=== PATIENT | female | born 1985 | race American Indian/Alaskan Native ===

== ENCOUNTER 2016-11-20 05:42 | Inpatient (IN) | payer MEDICARE ==
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
[~2016-11-20 05:42] MED LIST: LACTATED RINGERS 1,000 ML IV SCH
[2016-11-20] MEDS ORDERED: BICITRA PO ONE (06:00)
[2016-11-20] MEDS ORDERED: PITOCin/NS 20 UNIT/1000ML DRIP 20 UNITS/1,000 ML BAG IV SCH ×2 (06:00→12:29)
[2016-11-20] MEDS ORDERED: ANCEF/STERILE WATER 2 GM/20 ML 2 GM/20 ML SYRINGE IV NR (06:00)
[2016-11-20] MEDS ORDERED: REGLAN IV ONE (06:00)
[2016-11-20] MEDS ORDERED: PEPCID IV ONE (06:00)
[2016-11-20] MEDS ORDERED: LACTATED RINGERS 1,000 ML ONE ×3 (06:01→07:56)
[2016-11-20 06:25] LABS: Basophils % (Auto) 0.8 % (0.0-1.8); Eosinophils % (Auto) 1.2 % (0.0-4.3); Hematocrit 33.3 % (30.3-42.9); Hemoglobin 11.3 gm/dl (10.1-14.3); Mean Corpuscular HGB Conc 34 % (30-34); Mean Corpuscular Hemoglobin 28 pg (28-32); Mean Corpuscular Volume 82 fl (79-97); Platelet Count 299 K/mm3 (140-440); Red Blood Count 4.05 M/mm3 (3.65-5.03); Red Cell Distribution Width 13.5 % (13.2-15.2); White Blood Count 7.7 K/mm3 (4.5-11.0)
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
--- NOTE | 2016-11-20 07:25 | Anesthesia Day of Surgery ---
Anesthesia Day of Surgery - Day of Surgery Patient Examined: Yes Patient H&P Reviewed: Yes Patient is NPO: Yes
[2016-11-20] MEDS ORDERED: DILAUDID IV PRN (08:00)
[2016-11-20] MEDS ORDERED: SODIUM CHLORIDE FLUSH SYRINGE 10 ML IV PRN (08:00)
[2016-11-20] MEDS ORDERED: NARCAN 0.4 MG/1 ML IV PRN ×2 (08:00→12:29)
[2016-11-20] MEDS ORDERED: BENADRYL IV PRN (08:00)
[2016-11-20] MEDS ORDERED: ZOFRAN IV PRN (08:00)
[2016-11-20] MEDS ORDERED: MORPHINE ONE (09:16)
[2016-11-20] MEDS ORDERED: WATER FOR IRRIG STERILE IR ONE (09:55)
[2016-11-20] MEDS ORDERED: NACL 0.9% IR ONE (09:55)
[2016-11-20] MEDS ORDERED: NEO SYNEPHRINE/NS Syringe(OR USE) IV ONE (11:00)
[2016-11-20] MEDS ORDERED: ZOFRAN ONE (11:02)
[2016-11-20] MEDS ORDERED: TORADOL ONE (11:11)
[2016-11-20] MEDS ORDERED: XYLOCAINE MPF 2% ONE ×3 (11:18)
--- NOTE | 2016-11-20 11:35 | Operative Report ---
Operative Report Operative Report: Date of procedure: November 20, 2016 Preoperative diagnosis: 1) IUP at 39w2d 2) Previous x 2 3) Obesity 4) Undesired Fertility Postoperative diagnosis: Same 5) Intraabdominal adhesions Procedure: 1) Repeat low transverse section 2) Bilateral tubal ligation via [place] Method 3) Lysis of Adhesions Surgeon: Coco Blevins M.D. Anesthesia: Spinal-Epidural Findings: 1) Viable male , Apgars 9 and 9, weight 3310g, (7lb 5 oz). Tight nuchal cord x 2 2) Normal-appearing uterus ovaries and tubes 3) Dense adhesions of the parietal peritoneum to the anterior surface of the uterus Estimated blood loss: 800mL IV fluids: 1700 mL Urine output: 150 mL, concentrated at the end of the procedure Drains: Chiu to gravity Specimens: Bilateral tubal segments to pathology Complications: None. Counts correct x 3 Disposition: Stable to PACU Indication for procedure: Pt is a 31 year old female with a h/o two previous sections and undesired fertility who presents for repeat section and bilateral tubal ligation. Operation in detail: After the risks, benefits, alternatives and complications were explained to the patient she gave informed consent for the procedure. She was subsequently taken to the operating room where spinal-epidural anesthesia was noted to be adequate. She was subsequently placed in the dorsal supine position with leftward tilt and prepped and draped in a normal sterile fashion. heart tones were noted to be in the 135s prior to incision. A timeout was performed. A Pfannenstiel skin incision was made with the knife and carried down to the layer of the fascia with the Bovie. The fascia was incised in the midline and the fascial incision was extended bilaterally with the Bovie. Attention was then turned to the superior aspect of the incision which was grasped with two Kochers, tented up, and dissected off the rectus muscles. Attention was then turned to the inferior aspect of the incision which was grasped with two Kochers , tented up and dissected off the rectus muscles. The rectus muscles were then in the midline and partially transected for adequate visualization. The peritoneum was then entered bluntly. The peritoneal incision was extended with good visualization of the bladder. Fifteen minutes were then spent lysing dense adhesions of the parietal peritoneum to the anterior surface of the uterus. The peritoneal incision was then stretched. An Butch self- retaining retractor was placed for visualization. The bladder blade was placed. The vesicouterine peritoneum was grasped with smooth pickups and incised with Metzenbaum scissors. Metzenbaum scissors were used to extend the incision bilaterally. The bladder flap was then created digitally and the bladder blade was replaced. A transverse incision was made in the lower uterine segment with a knife and extended bilaterally with the bandage scissors. The head was delivered without difficulty, nuchal cord x 2 was reduced, followed by shoulders and body. was bulb suctioned at delivery. The cord was clamped and cut and the was handed to NICU staff in attendance. Cord blood was collected. The placenta was then delivered manually. The uterus was then exteriorized and cleared of all clots and debris. The hysterotomy was then reapproximated with 0 Vicryl in a running locked fashion. A second layer of the same suture was used in imbricating fashion. Attention was then turned to the tubal ligation. The right tube was identified and followed to to the fimbriae. The tube was then grasped with a Clark and ligated via the [place] method using 0 chromic suture. Attention was then turned to the left tube which in a similar fashion was followed down to the fimbriae, grasped with a Clark, and ligated in via the [place] method using 0 chromic suture. Hemostasis was noted. Surgicel was placed over the right tube. The hysterotomy was inspected and hemostasis was noted. The uterus was then returned to the peritoneal cavity. All instruments were removed from the abdominal cavity. The hysterotomy was again inspected and noted to be hemostatic. Surgicel was then placed over the hysterotomy. The rectus muscles and peritoneum were then reapproximated with 2-0 Vicryl in a running fashion. The cut edges of the rectus muscles were reapproximated with 2- 0 Vicryl in an interrupted fashion, then covered with Surgicel. The fascia was reapproximated with 0 Vicryl in a running fashion. The skin was closed with 4-0 Vicryl in a running fashion. The incision was then covered with steri strips and a pressure dressing. The procedure was then ended. The patient tolerated the procedure well and was taken to the PACU in stable condition. All instrument, lap, and needle counts were correct 3.
--- NOTE | 2016-11-20 11:35 | Procedure Note ---
OB Delivery Note - Delivery Date of Delivery: 11/20/16 Surgeon: FRANCK HOGUE Estimated blood loss: other (800 mL) - Section Preop diagnosis: repeat , desires sterilization Postop diagnosis: same section procedure: section, repeat low transverse, bilateral tubal ligation, other (lysis of adhesions ) Disposition: PACU Complications: none Narrative: Please see operative note. - A at 1 minute: 9 at 5 minutes: 9 Infant Gender: Male (3310 (7lb 5 oz) @ 1023 am)
[2016-11-20] MEDS ORDERED: LANSINOH TP PRN (12:29)
[2016-11-20] MEDS ORDERED: SODIUM CHLORIDE FLUSH SYRINGE 10 ML IV NR (12:29)
[2016-11-20] MEDS ORDERED: TUCKS PAD TP PRN (12:29)
[2016-11-20] MEDS ORDERED: ANCEF/NS 1 GM/50 ML 1 GM/50 ML BAG IV SCH (12:29)
[2016-11-20] MEDS ORDERED: TORADOL IV PRN (12:29)
[2016-11-20] MEDS ORDERED: MORPHINE IV PRN ×2 (12:29)
[2016-11-20] MEDS ORDERED: D5LR 1,000 ML IV SCH (12:29)
[2016-11-20] MEDS: FEOSOL PO SCH (21:50)
[2016-11-20] MEDS ORDERED: MILK OF MAGNESIA ONE (22:12)
[2016-11-20] MEDS: PERCOCET 5/325 PO PRN (23:43)
[2016-11-21 00:41] LABS: Hematocrit 30.8 % (30.3-42.9); Hemoglobin 9.9 gm/dl (10.1-14.3)
[2016-11-21] MEDS ORDERED: ANCEF/NS 1 GM/50 ML 1 GM/50 ML BAG IV ONE (02:36)
[2016-11-21] MEDS: MILK OF MAGNESIA PO SCH ×2 (02:39→21:18)
--- NOTE | 2016-11-21 09:28 | Progress Note ---
Subjective Date of service: 11/21/16 Interval history: 1st POD after Patient is in the bed, comfortable. Pain is well controlled with pain meds. Some pruritus is controlled with benadryl. Ambulated well. No residual neurological deficit. No anesthesia complications Objective - Constitutional Vitals: Vital Signs - 12hr 11/21/16 08:24 Temperature 98.6 F Respiratory 18 Rate Blood Pressure 105/56 - Labs CBC & Chem 7: 11/20/16 23:38 Labs: Abnormal lab results 11/20/16 Range/Units 23:38 Hgb 9.9 L (10.1-14.3) gm/dl
--- NOTE | 2016-11-21 10:12 | Progress Note ---
Assessment and Plan - Patient Problems (1) Previous delivery, delivered Current Visit: Yes Status: Acute Plan to address problem: routine postoperative care Subjective - Subjective Date of service: 11/21/16 Interval history: Tolerating clear diet. Routine postop discomforts. Overall pain is being controlled. Patient reports: appetite normal, pain well controlled : doing well Objective - Vital Signs Latest vital signs: Vital Signs Temp Pulse Resp BP BP Pulse Ox 11/21/16 08:24 98.6 F 91 H 18 105/56 11/20/16 13:00 97.7 F 60 20 130/80 11/20/16 12:37 98.1 F 11/20/16 12:31 65 11 L 135/30 100 11/20/16 12:15 67 11 L 104/43 100 11/20/16 12:10 69 17 111/52 99 11/20/16 12:05 65 15 121/61 99 11/20/16 12:01 73 15 116/72 100 11/20/16 11:55 60 9 L 116/72 100 11/20/16 11:50 63 12 124/80 100 11/20/16 11:45 67 15 126/43 100 11/20/16 11:40 54 L 9 L 119/66 100 11/20/16 11:35 58 L 7 L 124/60 100 11/20/16 11:30 97.9 F 94 Intake and Output 11/20/16 11/21/16 11/21/16 22:59 06:59 14:59 Other: # Voids Void 1 - Exam Uterus: Present: normal, firm Incision: Present: dressed - Labs Labs: Abnormal lab results 11/20/16 Range/Units 23:38 Hgb 9.9 L (10.1-14.3) gm/dl
[2016-11-21] MEDS: FEOSOL PO SCH ×2 (10:31→21:20)
[2016-11-21] MEDS: PERCOCET 5/325 PO PRN ×3 (10:31→21:19)
[2016-11-21] MEDS ORDERED: M-M-R II VACCINE SUB-Q ONE (11:48)
[2016-11-21] MEDS ORDERED: BOOSTRIX IM ONE (11:48)
[2016-11-21] MEDS: MOTRIN PO PRN ×2 (12:01→19:20)
[2016-11-21] MEDS: PRENATAL VITAMIN PO SCH (12:02)
[2016-11-22] MEDS: MYLICON PO PRN ×2 (01:52→08:01)
[2016-11-22] MEDS: PERCOCET 5/325 PO PRN ×4 (04:23→23:55)
[2016-11-22] MEDS: MOTRIN PO PRN ×2 (08:00→17:02)
[2016-11-22] MEDS: PRENATAL VITAMIN PO SCH (08:01)
[2016-11-22] MEDS: MILK OF MAGNESIA PO SCH ×2 (08:01→23:53)
[2016-11-22] MEDS: FEOSOL PO SCH ×2 (08:11→21:41)
--- NOTE | 2016-11-22 08:45 | Progress Note ---
Assessment and Plan A/P POD #2 s/p repeat c/s and tubal ligation vss pain controlled will give mag citrates for BM continue routine post op H/H 11.3--9.9 iron given O+ no rhogam indicated consider d/c home today if bm and ambulating well discharge meds on the chart Subjective - Subjective Date of service: 11/22/16 Principal diagnosis: s/p repeat c/s and tubal ligation Patient reports: appetite normal, voiding normally, pain well controlled : doing well, nursing well, bottle feeding Objective - Vital Signs Latest vital signs: Vital Signs Temp Pulse Resp BP Pulse Ox 11/22/16 04:23 20 11/22/16 00:00 98.6 F 81 16 121/67 11/21/16 21:19 20 11/21/16 19:20 18 11/21/16 16:25 20 11/21/16 16:24 87 97 11/21/16 10:31 20 Intake and Output 11/21/16 11/22/16 11/22/16 22:59 06:59 14:59 Intake Total 480 600 Balance 480 600 Intake: Oral 480 Intake, Free Water 600 Other: Total, Intake Amount 480 # Voids Void 1 - Exam Breasts: Present: normal Cardiovascular: Present: Regular rate, Normal S1 Lungs: Present: Clear to auscultation, Normal air movement Abdomen: Present: normal appearance, soft, normal bowel sounds. Absent: distention, tenderness, guarding Vulva: both: normal Uterus: Present: normal, firm, fundal height below umbilicus (2cm below ). Absent: bogginess, tenderness Deep Tendon Reflex Grade: Normal +2 Incision: Present: normal, dry, intact
--- NOTE | 2016-11-22 08:46 | Discharge Summary ---
Providers - Providers Date of Admission: 11/20/16 05:42 Date of discharge: 11/22/16 Attending physician: STEPH VALLECILLO MD 11/20/16 12:29 Consult to Drafting Layout Worker [CONS] Routine Reason For Exam: Primary care physician: STEPH VALLECILLO MD Hospitalization Reason for admission: section Delivery: Procedure: bilateral tubal ligation, repeat low transverse Episiotomy: none Laceration: none Incision: normal, intact Other procedures: none complications: none Discharge diagnosis: IUP at term delivered [place] baby: male Condition at discharge: Good Disposition: DC-01 TO HOME OR SELFCARE Plan - Discharge Medications Prescriptions: Ferrous Sulfate [Feosol 325 MG tab] 325 mg PO BID #60 tablet Ibuprofen [Motrin 800 MG tab] 800 mg PO Q8HR PRN #30 tablet PRN Reason: Pain oxyCODONE /ACETAMINOPHEN [Percocet 5/325] 1 tab PO Q6HR PRN #40 tablet PRN Reason: Pain - Provider Discharge Summary Activity: routine, no sex for 6 weeks, no strenuous exercise Diet: routine Instructions: routine Additional instructions: [] Smoking cessation referral if applicable(refer to patient education folder for contact #) [] Refer to [facility]'s [facility] Booklet Call your doctor immediately for: * Fever > 100.5 * Heavy vaginal bleeding ( >1 pad per hour) * Severe persistent headache * Shortness of breath * Reddened, hot, painful area to leg or breast * Drainage or odor from incision. * Keep incision clean and dry at all times and follow doctor's instructions regarding bathing/showering - Follow up plan Follow up: STEPH VALLECILLO MD [Primary Care Provider] - 14 Days
[2016-11-22] MEDS ORDERED: CITRATE OF MAGNESIA PO PRN (09:00)
[2016-11-23] MEDS: FEOSOL PO SCH (10:57)
[2016-11-23] MEDS: PRENATAL VITAMIN PO SCH (10:57)
[2016-11-23] MEDS: MOTRIN PO PRN (12:10)
[2016-11-23] MEDS: PERCOCET 5/325 PO PRN (12:11)
[2016-11-23] MEDS: MILK OF MAGNESIA PO SCH (12:14)
[2016-11-23 17:30] VITALS: BP 136/80
== END 2016-11-23 16:05 | disposition home or self-care (01) | DRG 766 ==
LOC: APU 05:42 → OB 13:20
PROVIDERS: ADMIT Obstetrics & Gynecology; ATTEND Obstetrics & Gynecology
PROC: 10D00Z1 Extraction of Products of Conception, Low, Open Approach (ICD-10-PCS; principal; 2016-11-20)
PROC: 0UB70ZZ Excision of Bilateral Fallopian Tubes, Open Approach (ICD-10-PCS; 2016-11-20)
PROC: 0DNW0ZZ Release Peritoneum, Open Approach (ICD-10-PCS; 2016-11-20)
DX: O34.211 Maternal care for low transverse scar from previous cesarean delivery (principal); O99.214 Obesity complicating childbirth; H91.90 Unspecified hearing loss, unspecified ear; O75.89 Other specified complications of labor and delivery; E66.9 Obesity, unspecified; O69.81X0 Labor and delivery complicated by cord around neck, without compression, not applicable or unspecified; O99.62 Diseases of the digestive system complicating childbirth; K66.0 Peritoneal adhesions (postprocedural) (postinfection); Z3A.39 39 weeks gestation of pregnancy; Z37.0 Single live birth; Z30.2 Encounter for sterilization; O09.33 Supervision of pregnancy with insufficient antenatal care, third trimester; Z68.37 Body mass index [BMI] 37.0-37.9, adult; Z82.49 Family history of ischemic heart disease and other diseases of the circulatory system
CPT/HCPCS: 36415; 59025; 85014; 85018; 85025; 86850; 86900; 86901; 88302; 96360; 96361; 96374; 96375; 99211; A6250; G0463; J0690; J1170; J1885; J2270; J2370; J2405; J2590; J2765; J7120; J7121